=== PATIENT | female | born 1985 | race Hispanic/Latino ===

== ENCOUNTER 2022-06-10 23:10 | Emergency (ER) | payer OTHER ==
[2022-06-11] MEDS ORDERED: Acetaminophen 500 MG TAB ONE (00:20)
== END 2022-06-11 01:34 | disposition home or self-care (01) ==
LOC: ERS 23:10
DX: M79.18 Myalgia, other site (principal); V89.2XXA Person injured in unspecified motor-vehicle accident, traffic, initial encounter